=== PATIENT | female | born 1960 | race Caucasian/White ===

== ENCOUNTER 2022-06-14 17:26 | Inpatient (IN) | payer MEDICAID ==
[~2022-06-14] VITALS: Ht 162.6 cm; Wt 77.1 kg
[2022-06-14 17:43] VITALS: BP 143/80
[2022-06-14 18:15] LABS: BASOPHILS # (AUTO) 0.1 K/uL (0.00-0.22); BASOPHILS % (AUTO) 0.7 % (0.0-2.0); EOSINOPHILS # (AUTO) 0.1 K/uL (0-0.4); HEMATOCRIT 34.5 % (36-48); HEMOGLOBIN 11.7 g/dL (12.0-16.0); LYMPHOCYTES # (AUTO) 1.7 K/uL (2.5-16.5); LYMPHOCYTES % (AUTO) 20.2 % (20.5-51.1); MEAN CORPUSCULAR HEMOGLOBIN 29 pg (27-31); MEAN CORPUSCULAR HGB CONC 34 g/dL (33-37); MEAN CORPUSCULAR VOLUME 85.7 fL (80-94); MONOCYTES # (AUTO) 0.5 K/uL (0.8-1.0); MONOCYTES % (AUTO) 6.2 % (1.7-9.3); NEUTROPHILS # (AUTO) 6.2 K/uL (1.8-7.7); NEUTROPHILS % (AUTO) 71.9 % (42.2-75.2); PLATELET COUNT (AUTO) 296 K/uL (140-450); RED BLOOD CELL COUNT(AUTO) 4.03 MIL/uL (4.20-5.40); RED CELL DISTRIBUTION WIDTH 13.1 % (11.6-13.7); WHITE BLOOD COUNT (AUTO) 8.6 K/uL (4.8-10.8)
[2022-06-14 18:45] LABS: ANION GAP 16.2 (8-16); CARBON DIOXIDE 25.6 mmol/L (21-32); POTASSIUM 3.8 mmol/L (3.5-5.1)
--- NOTE | 2022-06-15 00:30 | NUR ---
PATIENT ATTEMPTED TO VOID WITH NO SUCCESS. PATIENT HAS A URINE CUP AND WILL NOTIFY NURSE WHEN URINE IS COLLECTED.
--- NOTE | 2022-06-15 01:41 | NUR ---
IV INITIATED 18G L AC.
--- NOTE | 2022-06-15 01:49 | NUR ---
PATIENT TAKEN TO CT VIA W/C
--- NOTE | 2022-06-15 02:18 | NUR ---
Will assume care of pt and she is placed in bed 12.
--- NOTE | 2022-06-15 02:20 | NUR ---
Pt returned from CT.
[2022-06-15 02:24] LABS: APPEARANCE,URINE CLEAR (CLEAR); BILIRUBIN,URINE NEGATIVE (NEGATIVE); BLOOD, URINE 1+ (NEGATIVE); COLOR,URINE YELLOW (YELLOW); LEUKOCYTE ESTERASE ,URINE TRACE (NEGATIVE); NITRITE, URINE NEGATIVE (NEGATIVE); PH,URINE 5.5 (5.0-9.0); UGLUCOSE 1+ (NEGATIVE)
--- NOTE | 2022-06-15 02:30 | NUR ---
Pt coming from home dropped off by family. Pt uses wheelchair. Has unsteady gait. Pt c/o abdominal pain in all quadrants that she states started many months ago. Rates pain 10/10 and is continuous. Abdomen non-tender. Denies n/v. No chest pain and no sob. A&Ox4. VSS. Skin intact. NKA. Has hx of HTN and DM. Bed in lowest position.
--- NOTE | 2022-06-15 02:36 | NUR ---
Placed pt on NC 3L with O2 improvement now she is at 97% instead of 93%.
--- NOTE | 2022-06-15 02:52 | NUR ---
Covid swab done and sent to lab.
[2022-06-15 03:00] LABS: RBC,URINE 0-5 /HPF (0-5)
[2022-06-15 04:37] LABS: ASPARTATE AMINOTRANSFERASE 19 U/L (15-37); TOTAL BILIRUBIN 0.3 mg/dL (0.0-1.0)
[2022-06-15 04:54] LABS: BILIRUBIN,DIRECT 0.1 mg/dL (0.0-0.3)
[2022-06-15] MEDS ORDERED: MORPHINE SULFATE 4 MG/ML SYR IVP ONE (05:40)
--- NOTE | 2022-06-15 06:04 | NUR ---
ekg completed and given to Dr. Rivera for review.
[2022-06-15] MEDS ORDERED: cefTRIAXone 1,000 MG VIAL ONE (06:15)
--- NOTE | 2022-06-15 06:16 | NUR ---
Blood cultures drawn and sent to lab.
[2022-06-15] MEDS ORDERED: HEPARIN PER PHARMACY MC PRN (07:25)
[2022-06-15 09:20] LABS: PROTHROMBIN TIME 10.6 secs (10.8-13.4)
[2022-06-15] MEDS ORDERED: POTASSIUM CHLORIDE 10 MEQ TABER PO PRN (10:40)
[2022-06-15] MEDS: NACL 0.9% 1,000 ML IV SCH (10:40)
[2022-06-15] MEDS ORDERED: MAG SULF 2000 MG/WATER PREMIX 50 ML IV PRN (10:40)
[2022-06-15] MEDS ORDERED: ACETAMINOPHEN 325 MG TAB PO PRN (10:40)
[2022-06-15] MEDS ORDERED: ONDANSETRON 4 MG/2 ML VIAL IVP PRN (10:40)
--- NOTE | 2022-06-15 11:00 | NUR ---
ADMITTED PATIENT FROM ED. A/OX4. NAD. ASSESSMENT DONE AND DOCUMENTED. V/S STABLE. PLAN OF CARE DISCUSSED. PATIENT VERBALIZED UNDERSTANDING.
[2022-06-15 11:01] LABS: BASOPHILS % (AUTO) 0.7 % (0.0-2.0); EOSINOPHILS # (AUTO) 0.1 K/uL (0-0.4); EOSINOPHILS % (AUTO) 1.2 % (0.0-4.0); HEMATOCRIT 32.9 % (36-48); HEMOGLOBIN 11.3 g/dL (12.0-16.0); LYMPHOCYTES # (AUTO) 1.3 K/uL (2.5-16.5); LYMPHOCYTES % (AUTO) 17.2 % (20.5-51.1); MEAN CORPUSCULAR HEMOGLOBIN 30 pg (27-31); MEAN CORPUSCULAR HGB CONC 34 g/dL (33-37); MEAN CORPUSCULAR VOLUME 85.8 fL (80-94); MONOCYTES # (AUTO) 0.5 K/uL (0.8-1.0); MONOCYTES % (AUTO) 7.2 % (1.7-9.3); NEUTROPHILS # (AUTO) 5.4 K/uL (1.8-7.7); NEUTROPHILS % (AUTO) 73.7 % (42.2-75.2); PLATELET COUNT (AUTO) 247 K/uL (140-450); RED BLOOD CELL COUNT(AUTO) 3.83 MIL/uL (4.20-5.40); WHITE BLOOD COUNT (AUTO) 7.4 K/uL (4.8-10.8)
--- NOTE | 2022-06-15 11:08 | NUR ---
Patient will be admitted to [facility]. Admitted to telemetry. Will go to room 104A. Belongings list completed. Report to Tamia GURROLA.
[2022-06-15 11:45] LABS: ANION GAP 12.2 (8-16); CARBON DIOXIDE 27.4 mmol/L (21-32); CREATININE 1.2 mg/dL (0.6-1.3); POTASSIUM 3.6 mmol/L (3.5-5.1)
[2022-06-15 13:17] LABS: CHOL/HDL RATIO 5.3 (1-4.5); FREE T4 (FREE THYROXINE) 1.14 ng/dL (0.76-1.46); MAGNESIUM 1.7 mg/dL (1.8-2.4); PHOSPHORUS 3.5 mg/dL (2.5-4.9); THYROID STIMULATING HORMONE 2.38 uIU/mL (0.34-3.74)
[2022-06-15] MEDS: hePARIN / DEXT 5% PREMIX 250 ML IV SCH ×2 (14:09→21:34)
[2022-06-15] MEDS: HYDROcodone/APAP 7.5/325 MG 1 TAB PO PRN (14:15)
[2022-06-15] MEDS ORDERED: GLIP10TE PO (15:12)
[2022-06-15] MEDS ORDERED: METF-346 PO (15:12)
[2022-06-15] MEDS ORDERED: LISI-487 PO (15:12)
[2022-06-15] MEDS ORDERED: HYDR-4004 PO (15:12)
[2022-06-15 16:00] VITALS: BP 120/63
[2022-06-15] MEDS ORDERED: DEXTROSE 50% 50 ML SYR IVP PRN (16:05)
[2022-06-15] MEDS: BLOOD GLUCOSE MONITORING 1 DEV DEV FS SCH ×2 (16:30→21:05)
[2022-06-15] MEDS: INSULIN LISPRO SLIDING SCALE 100 UNITS/ML VIAL SUBQ PRN (17:33)
--- NOTE | 2022-06-15 20:00 | NUR ---
ASSUMED CARE OF PT, DX UTI, R/O PE, MULTIPLE PULMONARY NODULES, ON HEPARIN DRIP AT 11CC/HR, PT IS COMORAN SPEAKER IS THIS RN, PT DENIES CP, SOB, PAIN OR DISCOMFORT, PT ASSESSED, PLS SEE SHIFT ASSESSMENT, INSTRUCTED TO CALL FOR ASSISTANCE, CALL LIGHT WITHIN REACH, BED LOCKED AT LOWEST POSITION, NO DISTRESS NOTED, WILL CONTINUE TO MONITOR.
[2022-06-15] MEDS ORDERED: LOVENOX 1MG/KG Q12H SUBQ SCH (21:00)
[2022-06-15] MEDS: DOCUSATE SODIUM 100 MG GELCAP PO SCH (21:05)
--- NOTE | 2022-06-15 21:30 | NUR ---
D- LAB REPORTED LATEST PTT 28.6 A- PER PROTOCOL HEPARIN DRIP RATE INCREASED TO 14CC/HR AND BOLUS HEPARIN 5000 UNITS IVP GIVEN. NO DISTRESS NOTED WILL CONTINUE TO MONITOR.
[2022-06-16 00:28] VITALS: BP 105/56
--- NOTE | 2022-06-16 03:00 | NUR ---
ASSISTED PT TO DRAFTER PATENT WITH SUPERVISED ASSIST ONLY, PT VOIDED WITHOUT INCIDENTS, NO DISTRESS NOTED, WILL CONTINUE TO MONITOR.
[2022-06-16 03:51] VITALS: BP 100/69
[2022-06-16 03:53] LABS: BASOPHILS % (AUTO) 0.8 % (0.0-2.0); EOSINOPHILS # (AUTO) 0.1 K/uL (0-0.4); EOSINOPHILS % (AUTO) 1.6 % (0.0-4.0); HEMATOCRIT 35.8 % (36-48); HEMOGLOBIN 12.1 g/dL (12.0-16.0); LYMPHOCYTES # (AUTO) 1.3 K/uL (2.5-16.5); LYMPHOCYTES % (AUTO) 21.3 % (20.5-51.1); MEAN CORPUSCULAR HEMOGLOBIN 29 pg (27-31); MEAN CORPUSCULAR HGB CONC 34 g/dL (33-37); MONOCYTES # (AUTO) 0.4 K/uL (0.8-1.0); MONOCYTES % (AUTO) 6.5 % (1.7-9.3); NEUTROPHILS # (AUTO) 4.4 K/uL (1.8-7.7); NEUTROPHILS % (AUTO) 69.8 % (42.2-75.2); PLATELET COUNT (AUTO) 279 K/uL (140-450); RED BLOOD CELL COUNT(AUTO) 4.21 MIL/uL (4.20-5.40); WHITE BLOOD COUNT (AUTO) 6.3 K/uL (4.8-10.8)
[2022-06-16 04:08] LABS: ANION GAP 12.8 (8-16); CARBON DIOXIDE 26.8 mmol/L (21-32); CREATININE 1.1 mg/dL (0.6-1.3); POTASSIUM 3.6 mmol/L (3.5-5.1)
[2022-06-16 04:11] LABS: MAGNESIUM 2.3 mg/dL (1.8-2.4)
[2022-06-16] MEDS: hePARIN / DEXT 5% PREMIX 250 ML IV SCH ×5 (05:59→23:03)
[2022-06-16] MEDS: NACL 0.9% 1,000 ML IV SCH (06:48)
--- NOTE | 2022-06-16 07:50 | NUR ---
CLOSING NO CHANGE ON STATUS, NO DISTRESS NOTED, REPORT GIVEN TO GALILEO CRISTOBAL PER SBAR AT BEDSIDE.
[2022-06-16 08:00] VITALS: BP 102/66
[2022-06-16] MEDS: BLOOD GLUCOSE MONITORING 1 DEV DEV FS SCH ×4 (08:18→21:27)
[2022-06-16] MEDS: INSULIN LISPRO SLIDING SCALE 100 UNITS/ML VIAL SUBQ PRN ×4 (08:34→21:30)
[2022-06-16] MEDS: DOCUSATE SODIUM 100 MG GELCAP PO SCH ×2 (08:39→21:22)
[2022-06-16] MEDS: PANTOPRAZOLE 40 MG INJ VIAL IVP SCH (08:40)
[2022-06-16 12:00] VITALS: BP 111/69
[2022-06-16] MEDS: NYSTATIN CRE 100 MU/GM 15 GM TUBE TP SCH ×2 (13:14→17:45)
--- NOTE | 2022-06-16 15:27 | NUR ---
PATIENT HAS BEEN SCREENED AND CATEGORIZED MODERATE NUTRITION RISK. PATIENT WILL BE SEEN WITHIN 3-5 DAYS OF ADMISSION. 06/18/[address]
[2022-06-16 16:00] VITALS: BP 123/77
--- NOTE | 2022-06-16 19:45 | NUR ---
RECEIVED REPORT FROM NURSE LEVAR. PATIENT AWAKE ALERT ORIENTED. NO S/S OF RESPIRATORY DISTRESS. ON ROOM AIR. BREATHING EVEN UNLABORED. NO COMPLAINTS OF PAIN AT THIS TIME. CALL LIGHT WITHIN REACH. ALL SAFETY PRECAUTIONS ARE IN PLACE. ON HEPARIN DRIP RUNNING AT 1800 UNITS/HR ON THE LAC.
[2022-06-16 20:00] VITALS: BP 112/77
--- NOTE | 2022-06-16 20:04 | NUR ---
ENDORSE PATIENT TO PM SHIFT NURSE WHILE PATIENT REST IN BED STABLE, PIV LAC INFUSING HEPARIN DRIP AT 18ML/HR. PTT DR SCHEDULE AT 1924.
--- NOTE | 2022-06-16 21:22 | NUR ---
ALL SCHEDULED MEDICATIONS ADMINISTERED.
[2022-06-17] VITALS: BP 110/70
[2022-06-17] MEDS: HYDROcodone/APAP 7.5/325 MG 1 TAB PO PRN (01:47)
[2022-06-17] MEDS: NACL 0.9% 1,000 ML IV SCH (02:40)
[2022-06-17 04:00] VITALS: BP 102/65
--- NOTE | 2022-06-17 06:34 | NUR ---
ROCEPHIN GIVEN ORDERED.
[2022-06-17] MEDS: BLOOD GLUCOSE MONITORING 1 DEV DEV FS SCH ×2 (06:35→12:07)
[2022-06-17] MEDS: INSULIN LISPRO SLIDING SCALE 100 UNITS/ML VIAL SUBQ PRN ×2 (06:36→12:08)
[2022-06-17 07:42] LABS: BASOPHILS % (AUTO) 0.5 % (0.0-2.0); EOSINOPHILS # (AUTO) 0.1 K/uL (0-0.4); EOSINOPHILS % (AUTO) 1.9 % (0.0-4.0); HEMATOCRIT 31.4 % (36-48); HEMOGLOBIN 10.8 g/dL (12.0-16.0); LYMPHOCYTES # (AUTO) 1.3 K/uL (2.5-16.5); LYMPHOCYTES % (AUTO) 20.7 % (20.5-51.1); MEAN CORPUSCULAR HEMOGLOBIN 30 pg (27-31); MEAN CORPUSCULAR HGB CONC 34 g/dL (33-37); MEAN CORPUSCULAR VOLUME 86.6 fL (80-94); MONOCYTES # (AUTO) 0.4 K/uL (0.8-1.0); MONOCYTES % (AUTO) 6.6 % (1.7-9.3); NEUTROPHILS # (AUTO) 4.5 K/uL (1.8-7.7); NEUTROPHILS % (AUTO) 70.3 % (42.2-75.2); PLATELET COUNT (AUTO) 249 K/uL (140-450); RED BLOOD CELL COUNT(AUTO) 3.62 MIL/uL (4.20-5.40); WHITE BLOOD COUNT (AUTO) 6.5 K/uL (4.8-10.8)
--- NOTE | 2022-06-17 07:42 | NUR ---
ENDORSED PATIENT TO DAY SHIFT NURSE FOR CONTINUITY OF CARE.
[2022-06-17 08:00] VITALS: BP 129/72
[2022-06-17 08:09] LABS: MAGNESIUM 1.8 mg/dL (1.8-2.4); PHOSPHORUS 3.3 mg/dL (2.5-4.9)
[2022-06-17 08:24] LABS: ANION GAP 15.3 (8-16); CARBON DIOXIDE 24.3 mmol/L (21-32); POTASSIUM 3.6 mmol/L (3.5-5.1)
--- NOTE | 2022-06-17 08:40 | NUR ---
DC PLANNING LATE ENTRY, PT SEEN 06/16 AT 1300 SW MET W/ PT AT BEDSIDE TO COMPLETE ASSESSMENT. PT PRIMARILY KYRGYZ SPEAKING THEREFORE, DECK WORKER SERVICE WAS UTILIZED; CARISSA [id number]. PT REPORTS RESIDING IN A SINGLE STORY HOME WITH HER RIGO AT THE ADDRESS LISTED ON FILE. PT IDENTIFIED RIGO HILLMAN, EMERGENCY CONTACT. PT DENIED HAVING AD IN PLACE AND DECLINED AD OFFERED BY SW. PT REPORTS LAST VISIT WITH PCP, MAY 27. PT REPORTS MEDICATION COMPLIANCE AND DENIES BARRIERS IN ACCESS TO NEEDED MEDICATIONS. PT REPORTS RECEIVING MEDICATIONS FROM [facility] IN [place], WHEN NEEDED. PT REPORTS BEING INDEPENDENT IN ALL ACTIVITIES AND DENIES USE OF DME. PT COMPLETES ALL ADL'S INDEPENDENTLY. PT DENIES MH/BRENNAN HX. PT REPORTS HX OF DIABETES THAT IS NOT WELL MANAGED SHE FINDS IT DIFFICULT TO BE NUTRITION COMPLIANT. PT REPORTS SHE IS AWARE SHE NEEDS TO MAKE HEALTHIER FOOD CHOICES TO AID IN MANAGING DIABETES. . PT DENIES HX OF HH, SNF PLACEMENT, DIALYSIS [place]. PT REPORTS DC PLAN IS TO RETURN HOME WITH SISTER PROVIDING TRANSPORTATION, WHEN MEDICALLY STABLE. SW INQUIRED ON RESOURCES NEEDED, PT DECLINED AT THIS TIME. Addendum: 06/17/22 at 0842 by Valerie WILSON Amended: Links added.
[2022-06-17] MEDS ORDERED: LACTULOSE 20 GM/30 ML UDC PO SCH (09:00)
[2022-06-17] MEDS: DOCUSATE SODIUM 100 MG GELCAP PO SCH (09:56)
[2022-06-17] MEDS: NYSTATIN CRE 100 MU/GM 15 GM TUBE TP SCH ×2 (09:56→12:11)
[2022-06-17] MEDS: PANTOPRAZOLE 40 MG INJ VIAL IVP SCH (09:56)
--- NOTE | 2022-06-17 10:02 | NUR ---
PTT 59.5 NO CHANGE WILL HANG NEW BAG
[2022-06-17] MEDS: hePARIN / DEXT 5% PREMIX 250 ML IV SCH (10:08)
[2022-06-17 12:00] VITALS: BP 140/90
[2022-06-17] MEDS ORDERED: GABA300C PO (13:38)
--- NOTE | 2022-06-17 16:00 | NUR ---
PT WITH DISCHARGE ORDERS VENOUS DOPPLER GERMAIN LOWER EXTREMETIES NEGATIVE MD JEAN AWARE AND PT WILL BE DISCHARGED ORDERED AT THIS TIME AWAITING RIDE
[2022-06-17 17:04] VITALS: BP 140/90
--- NOTE | 2022-06-17 17:16 | NUR ---
IV DISCONTINUED PT DRESSED AND AWAITING RIDE
--- NOTE | 2022-06-17 18:55 | NUR ---
DISCHARGE INSTRUCTIONS GIVEN TO PT VICE PRESIDENT OF SOFTWARE ENGINEERING HECTOR MUNOZ TRANSLATED PT AWARE WHERE TO LAMPS TESTER AND INSPECTOR RX AND ADVISED TO FOLLOW UP WITH PCP UNDERSTANDING VERBALIZED PT WISHES TO WAIT IN LOBBY FOR FAMILY PT ASSISTED TO LOBBY VIA WHEELCHAIR NO DISTRESS NOTED
[2022-06-17 20:34] LABS: BARBITURATE, URINE NEGATIVE ng/ml (NEG <=200); BENZODIAZEPINE, URINE NEGATIVE ng/mL (NEG <=200); CANNABINOID, URINE NEGATIVE ng/mL (NEG <=50); COCAINE, URINE NEGATIVE ng/mL (NEG <=300); OPIATE, URINE POSITIVE ng/mL (NEG <=2000); PHENCYCLIDINE SCREEN,URINE NEGATIVE ng/mL (NEG <=25)
== END 2022-06-17 18:59 | disposition home or self-care (01) | DRG 422 ==
LOC: MED 17:26 → MTU 06-15 07:15
DX: E86.0 Dehydration (principal); N17.0 Acute kidney failure with tubular necrosis; D64.9 Anemia, unspecified; E11.9 Type 2 diabetes mellitus without complications; E78.00 Pure hypercholesterolemia, unspecified; E78.5 Hyperlipidemia, unspecified; K40.90 Unilateral inguinal hernia, without obstruction or gangrene, not specified as recurrent; K76.0 Fatty (change of) liver, not elsewhere classified; N39.0 Urinary tract infection, site not specified; K57.90 Diverticulosis of intestine, part unspecified, without perforation or abscess without bleeding; E83.42 Hypomagnesemia; Z20.822 Contact with and (suspected) exposure to COVID-19; I10 Essential (primary) hypertension; L30.4 Erythema intertrigo; I70.0 Atherosclerosis of aorta; M41.9 Scoliosis, unspecified; Z79.4 Long term (current) use of insulin
CPT/HCPCS: 36415; 71045; 71275; 76881; 80048; 80076; 80305; 81001; 82140; 82150; 82948; 83036; 83605; 83690; 83735; 83880; 84100; 84439; 84443; 84484; 85025; 85379; 85610; 85730; 87040; 87081; 87086; 93970; 96374; 96375; 99285; C9113; J0696; J1644; J1815; J2270; J3475; J7060; Q0092; Q9967

== ENCOUNTER 2022-08-08 02:08 | Inpatient (IN) | payer MEDICAID ==
[~2022-08-08] VITALS: Ht 165.1 cm; Wt 86.2 kg
[~2022-08-08 02:08] MED LIST: GABA300C PO; GLIP10TE PO; HYDR-4004 PO; LISI-487 PO; METF-346 PO
[2022-08-08 02:15] VITALS: BP 123/90
--- NOTE | 2022-08-08 02:18 | NUR ---
TO LOBBY A/W BED AMBULATORY
--- NOTE | 2022-08-08 02:31 | NUR ---
Dr. Tracy examining patient.
--- NOTE | 2022-08-08 02:34 | NUR ---
PT TO 5
[2022-08-08] MEDS ORDERED: FLUCONAZOLE 100 MG/NS PREMIX 50 ML IV ONE (02:35)
[2022-08-08] MEDS ORDERED: NACL 0.9% 1,000 ML IV ONE ×2 (02:35→05:20)
[2022-08-08] MEDS ORDERED: KETOROLAC 30 MG/ML VIAL IVP ONE (02:35)
[2022-08-08] MEDS ORDERED: cefTRIAXone 1,000 MG VIAL ONE ×2 (03:06→20:35)
[2022-08-08 03:13] LABS: BASOPHILS # (AUTO) 0.1 K/uL (0.00-0.22); BASOPHILS % (AUTO) 1.3 % (0.0-2.0); EOSINOPHILS # (AUTO) 0.1 K/uL (0-0.4); EOSINOPHILS % (AUTO) 1.1 % (0.0-4.0); HEMATOCRIT 33.5 % (36-48); HEMOGLOBIN 11.7 g/dL (12.0-16.0); LYMPHOCYTES # (AUTO) 1.5 K/uL (2.5-16.5); LYMPHOCYTES % (AUTO) 20.1 % (20.5-51.1); MEAN CORPUSCULAR HEMOGLOBIN 29 pg (27-31); MEAN CORPUSCULAR HGB CONC 35 g/dL (33-37); MEAN CORPUSCULAR VOLUME 83.1 fL (80-94); MONOCYTES # (AUTO) 0.5 K/uL (0.8-1.0); MONOCYTES % (AUTO) 7.1 % (1.7-9.3); NEUTROPHILS # (AUTO) 5.2 K/uL (1.8-7.7); NEUTROPHILS % (AUTO) 70.4 % (42.2-75.2); PLATELET COUNT (AUTO) 265 K/uL (140-450); RED BLOOD CELL COUNT(AUTO) 4.03 MIL/uL (4.20-5.40); RED CELL DISTRIBUTION WIDTH 13.4 % (11.6-13.7); WHITE BLOOD COUNT (AUTO) 7.3 K/uL (4.8-10.8)
[2022-08-08 03:34] LABS: ALBUMIN 4.1 g/dL (3.4-5.0); ANION GAP 15.6 (8-16); CARBON DIOXIDE 24.8 mmol/L (21-32); CREATININE 1.1 mg/dL (0.6-1.3); POTASSIUM 3.4 mmol/L (3.5-5.1); TOTAL BILIRUBIN 0.8 mg/dL (0.0-1.0)
[2022-08-08 03:38] LABS: APPEARANCE,URINE CLEAR (CLEAR); BILIRUBIN,URINE NEGATIVE (NEGATIVE); BLOOD, URINE NEGATIVE (NEGATIVE); COLOR,URINE YELLOW (YELLOW); LEUKOCYTE ESTERASE ,URINE TRACE (NEGATIVE); NITRITE, URINE NEGATIVE (NEGATIVE); PH,URINE 5.5 (5.0-9.0); UGLUCOSE NEGATIVE (NEGATIVE)
--- NOTE | 2022-08-08 04:10 | NUR ---
Diflucan IV not available, ER Dr. Tracy aware.
[2022-08-08 04:14] LABS: RBC,URINE 0-5 /HPF (0-5)
--- NOTE | 2022-08-08 04:32 | NUR ---
Ambulated to restroom gait steady
--- NOTE | 2022-08-08 04:53 | NUR ---
Swabs collected sent to lab
[2022-08-08] MEDS ORDERED: [UNRECOGNIZED DRUG - CODE] PO (05:07)
[2022-08-08] MEDS ORDERED: VANCOMYCIN PER PHARMACY MC PRN (05:20)
--- NOTE | 2022-08-08 06:25 | NUR ---
Resting comfortably at this time. Denies any discomfort.
[2022-08-08] MEDS ORDERED: VANCOMYCIN 1GM/DEXT 5% PREMIX 200 ML IV SCH (06:30)
[2022-08-08] MEDS: PIPERACILLIN/TAZOBACTAM 3.375 GM in DEXTROSE 5% 50 ML IV SCH ×3 (06:45→18:46)
[2022-08-08] MEDS ORDERED: PIPERACILLIN/TAZOBACTAM 3.375 GM VIAL IV ONE ×3 (06:54→18:41)
[2022-08-08] MEDS ORDERED: PIPERACILLIN/TAZOBACTAM 3.375 GM in DEXTROSE 5% 50 ML IV SCH (07:00)
--- NOTE | 2022-08-08 07:21 | NUR ---
[facility]
--- NOTE | 2022-08-08 07:22 | NUR ---
Report recived from GALILEO Ortega for transfer of care.
--- NOTE | 2022-08-08 08:22 | NUR ---
Patient is resting on bed, respirations even and unlabored. All needs met by staff.
[2022-08-08] MEDS ORDERED: FENOFIBRATE 48 MG TAB PO SCH (09:00)
[2022-08-08] MEDS ORDERED: hydroCHLOROthiazide 25 MG TAB PO ONE (09:00)
--- NOTE | 2022-08-08 09:32 | NUR ---
PATIENT HAS BEEN SCREENED AND CATEGORIZED MODERATE NUTRITION RISK. PATIENT WILL BE SEEN WITHIN 3-5 DAYS OF ADMISSION. / REVIEWED BY ANDRIY SULLIVAN RD
[2022-08-08] MEDS: glipiZIDE ER 5 MG TABER PO SCH ×2 (10:26→20:49)
[2022-08-08] MEDS: metFORMIN 500 MG TAB PO SCH ×2 (10:27→20:49)
[2022-08-08] MEDS: lisinopriL 20 MG TAB PO SCH (10:30)
[2022-08-08] MEDS ORDERED: VANCOMYCIN 750 MG in DEXTROSE 5% 250 ML IV SCH ×3 (10:30→22:00)
[2022-08-08] MEDS ORDERED: VANCOMYCIN 1,000 MG VIAL PO SCH (10:45)
--- NOTE | 2022-08-08 10:51 | NUR ---
Dr. Watson, admitting doctor, evaluating patient at bedside.
[2022-08-08] MEDS ORDERED: hydroCHLOROthiazide 25 MG TAB PO SCH (12:00)
--- NOTE | 2022-08-08 12:06 | NUR ---
Patient was offered her lunch tray. Patient is sitting up eating.
--- NOTE | 2022-08-08 13:03 | NUR ---
Patient ambulated to restroom with steady gait.
--- NOTE | 2022-08-08 14:43 | NUR ---
Patient had one large loose bowel movement. Patient was assisted to the restroom and cleaned up. Patient applief fresh goen and brief.
[2022-08-08] MEDS: MORPHINE SULFATE 2 MG/ML SYR IVP PRN ×2 (15:17→22:15)
--- NOTE | 2022-08-08 16:34 | NUR ---
Patient is laying in bed, respirations even and unlabored. All needs met by staff.
--- NOTE | 2022-08-08 18:15 | NUR ---
Patient was offered dinner tray. Patient is sitting up eating dinner.
--- NOTE | 2022-08-08 19:16 | NUR ---
Report given to GALILEO Figueroa for transfer of care.
[2022-08-08] MEDS: NACL 0.9% 1,000 ML IV SCH (19:44)
[2022-08-08] MEDS: NYSTATIN CRE 100 MU/GM 15 GM TUBE TP SCH (20:49)
--- NOTE | 2022-08-08 21:00 | NUR ---
Patient will be admitted to care of Dr. Watson. Admited to MS floor. Will go to [id number]. Belongings list completed. Report to Shahla GURROLA.
[2022-08-08 21:10] VITALS: BP 115/74
--- NOTE | 2022-08-08 21:10 | NUR ---
PT TRANSPORTED FROM ER TO [facility] VIA GURNEY. RECEIVED REPORT FROM ER NURSE NIKOLE FOR CONTINUITY OF CARE. PT AWAKE. AMBULATORY. RESPIRATIONS EVEN AND UNLABORED ON RA. V/S AND MRSA NARES SWAB TAKEN. SKIN INTACT. NOTED REDNESS AND RASHES ON LOWER LEFT ABD. RESUMED IVF. PT ORIENTED TO ROOM, UNIT AND ROUTINE. CALL LIGHT WITHIN REACH. SAFETY PRECAUTIONS IN PLACE.
--- NOTE | 2022-08-08 21:30 | NUR ---
COMPLETED ADMISSION ASSESSMENT AND PROCESS USING EAR MACHINE OPERATOR #[id number]. RECEIVED ORDER FROM DR MAHONEY-FULL CODE.
[2022-08-08] MEDS ORDERED: VANCOMYCIN 500 MG VIAL ONE (21:59)
[2022-08-08] MEDS ORDERED: DEXTROSE 50% 50 ML SYR IVP PRN (22:35)
[2022-08-09] MEDS: NACL 0.9% 1,000 ML IV SCH ×2 (02:50→21:46)
[2022-08-09 04:00] VITALS: BP 122/85
[2022-08-09] MEDS ORDERED: ceFAZolin 1,000 MG VIAL ONE (04:43)
[2022-08-09] MEDS: BLOOD GLUCOSE MONITORING 1 DEV DEV FS SCH ×4 (06:32→20:18)
--- NOTE | 2022-08-09 06:32 | NUR ---
BLOOD SUGAR CHECK DONE. NO INSULIN COVERAGE NEEDED. PT BACK TO SLEEP. NO COMPLAINTS OF PAIN. NO DISTRESS NOTED. SAFETY PRECAUTIONS IN PLACE.
--- NOTE | 2022-08-09 07:17 | NUR ---
ENDORSED PT TO DAY SHIFT NURSE DAVID FOR CONTINUITY OF CARE. ALL NEEDS MET THROUGHOUT SHIFT. PT IS IN STABLE CONDITION.
--- NOTE | 2022-08-09 07:18 | NUR ---
RECEIVED PT FROM PATIENT CARE REPRESENTATIVE NURSE FOR CONTINUITY OF CARE. PT IN BED ASLEEP. VISIBLE CHEST RISE AND FALL. RESPIRATIONS EVEN AND UNLABORED. IV ON LAC. CALL LIGHT WITHIN REACH. ALL SAFETY MEASURES IN PLACE.
[2022-08-09 08:00] VITALS: BP 123/77
[2022-08-09] MEDS ORDERED: ACETAMINOPHEN 325 MG TAB PO PRN (08:20)
[2022-08-09] MEDS ORDERED: MORPHINE SULFATE 2 MG/ML SYR IVP PRN (08:20)
[2022-08-09] MEDS ORDERED: ZOLPIDEM 10 MG TAB PO PRN (08:20)
[2022-08-09] MEDS ORDERED: POTASSIUM CHLORIDE 10 MEQ TABER PO PRN (08:20)
[2022-08-09] MEDS ORDERED: LORazepam 2 MG/ML VIAL IVP PRN (08:20)
[2022-08-09] MEDS ORDERED: DOCUSATE SODIUM 100 MG GELCAP PO PRN (08:20)
[2022-08-09] MEDS ORDERED: ONDANSETRON 4 MG/2 ML VIAL IVP PRN (08:20)
[2022-08-09] MEDS: NYSTATIN CRE 100 MU/GM 15 GM TUBE TP SCH ×3 (09:00→20:24)
[2022-08-09] MEDS: glipiZIDE ER 5 MG TABER PO SCH (09:27)
[2022-08-09] MEDS: metFORMIN 500 MG TAB PO SCH ×2 (09:28→20:21)
[2022-08-09] MEDS: hydroCHLOROthiazide 25 MG TAB PO SCH (09:29)
[2022-08-09] MEDS: lisinopriL 20 MG TAB PO SCH (09:29)
[2022-08-09] MEDS: FENOFIBRATE 48 MG TAB PO SCH (09:29)
--- NOTE | 2022-08-09 09:30 | NUR ---
ALL SCHEDULED MEDS GIVEN. PT TOLERATING WELL.
[2022-08-09 10:06] LABS: CARBON DIOXIDE 24.9 mmol/L (21-32); POTASSIUM 3.9 mmol/L (3.5-5.1)
[2022-08-09] MEDS: INSULIN LISPRO SLIDING SCALE 100 UNITS/ML VIAL SUBQ PRN ×3 (12:07→20:19)
[2022-08-09 16:00] VITALS: BP 130/83
[2022-08-09] MEDS: glipiZIDE 10 MG TAB PO SCH (17:20)
--- NOTE | 2022-08-09 19:30 | NUR ---
ENDORSED PT TO SENIOR NET DEVELOPER ARCHITECT NURSE FOR CONTINUITY OF CARE. PT IN STABLE CONDITION.
--- NOTE | 2022-08-09 19:31 | NUR ---
RECEIVED REPORT FROM DAY SHIFT NURSE DAVID FOR CONTINUITY OF CARE. PT AWAKE, IN BED. AMBULATORY. INITIAL ASSESSMENT DONE. RESPIRATIONS EVEN AND UNLABORED ON RA. SKIN INTACT, WARM AND DRY TO TOUCH. NOTED, REDNESS AND RASHES ON LEFT LOWER ABD, UNDER SKIN FOLDS. CALL LIGHT WITHIN REACH. SAFETY PRECAUTIONS IN PLACE.
[2022-08-09 20:00] VITALS: BP 128/71
--- NOTE | 2022-08-09 20:21 | NUR ---
ADMINISTERED DUE MEDS. PT TOLERATED WELL.
--- NOTE | 2022-08-09 21:03 | NUR ---
PT COMPLAINING OF DIARRHEA. PER PT SHE HAD 10X DIARRHEA FOR TODAY. INFORMED MD. RECEIVED AND CARRIED OUT ORDERS.
--- NOTE | 2022-08-10 04:04 | NUR ---
DID ROUNDS. PT SLEEPING. BREATHING EVEN AND UNLABORED. NO DISTRESS NOTED. SAFETY PRECAUTIONS IN PLACE.
[2022-08-10] MEDS: BLOOD GLUCOSE MONITORING 1 DEV DEV FS SCH ×4 (06:32→21:00)
--- NOTE | 2022-08-10 06:32 | NUR ---
BLOOD SUGAR CHECK DONE. NO SLIDING SCALE INSULIN NEEDED. PT HAD 4 EPISODES OF LOOSE BM ALL THROUGHOUT THE SHIFT. PT RESTING IN BED WITH NO DISTRESS NOTED.
[2022-08-10] MEDS: NACL 0.9% 1,000 ML IV SCH ×2 (07:00→17:00)
--- NOTE | 2022-08-10 07:20 | NUR ---
RECEIVED REPORT FROM STAVE PLANER TENDER NURSE FOR CONTINUITY OF CARE. PT STABLE AT THIS TIME.
[2022-08-10 07:24] LABS: BASOPHILS % (AUTO) 0.5 % (0.0-2.0); EOSINOPHILS # (AUTO) 0.1 K/uL (0-0.4); EOSINOPHILS % (AUTO) 1.2 % (0.0-4.0); HEMATOCRIT 31.8 % (36-48); HEMOGLOBIN 10.8 g/dL (12.0-16.0); LYMPHOCYTES # (AUTO) 1.3 K/uL (2.5-16.5); LYMPHOCYTES % (AUTO) 19.7 % (20.5-51.1); MEAN CORPUSCULAR HEMOGLOBIN 29 pg (27-31); MEAN CORPUSCULAR HGB CONC 34 g/dL (33-37); MEAN CORPUSCULAR VOLUME 85.1 fL (80-94); MONOCYTES # (AUTO) 0.4 K/uL (0.8-1.0); MONOCYTES % (AUTO) 6.6 % (1.7-9.3); NEUTROPHILS # (AUTO) 4.8 K/uL (1.8-7.7); PLATELET COUNT (AUTO) 246 K/uL (140-450); RED BLOOD CELL COUNT(AUTO) 3.74 MIL/uL (4.20-5.40); RED CELL DISTRIBUTION WIDTH 13.1 % (11.6-13.7); WHITE BLOOD COUNT (AUTO) 6.6 K/uL (4.8-10.8)
--- NOTE | 2022-08-10 07:24 | NUR ---
ENDORSED PT TO DAY SHIFT NURSE ILYA FOR CONTINUITY OF CARE. PENDING STOOL SAMPLE FOR STOOL STUDIES. ALL NEEDS MET THROUGHOUT SHIFT. PT IS IN STABLE CONDITION.
[2022-08-10 07:30] LABS: ANION GAP 12.7 (8-16); CARBON DIOXIDE 25.3 mmol/L (21-32)
[2022-08-10 08:00] VITALS: BP 108/57
[2022-08-10] MEDS: glipiZIDE 10 MG TAB PO SCH ×2 (08:04→17:22)
[2022-08-10] MEDS: MORPHINE SULFATE 2 MG/ML SYR IVP PRN (08:05)
[2022-08-10] MEDS: hydroCHLOROthiazide 25 MG TAB PO SCH (09:00)
[2022-08-10] MEDS: NYSTATIN CRE 100 MU/GM 15 GM TUBE TP SCH ×2 (09:00→22:16)
[2022-08-10] MEDS: lisinopriL 20 MG TAB PO SCH (09:00)
[2022-08-10] MEDS: FENOFIBRATE 48 MG TAB PO SCH (09:56)
[2022-08-10] MEDS: metFORMIN 500 MG TAB PO SCH (09:57)
[2022-08-10] MEDS: MAG SULF 2000 MG/WATER PREMIX 50 ML IV PRN (09:58)
[2022-08-10] MEDS: INSULIN LISPRO SLIDING SCALE 100 UNITS/ML VIAL SUBQ PRN (12:05)
[2022-08-10] MEDS: PANTOPRAZOLE 40 MG INJ VIAL IVP SCH (12:05)
--- NOTE | 2022-08-10 13:00 | NUR ---
DISCHARGE PLANNING PATIENT IS A 62 YEAR OLD FEMALE ADMITTED TO [facility] ON 08/08/2022 DUE TO PAINFUL RASH IN THE LOWER ABDOMEN. SW MEET WITH PATIENT AT BEDSIDE TO DISCUSS AND GATHER PATIENT'S COLLATERAL INFORMATIONS. PATIENT WAS AWAKE AND ALERT ABLE TO PROVIDE HER OWN INFORMATION. (PATIENT IS KHMER SPEAKING) PER PATIENT SHE LIVES AT HOME WITH HER SISTER [place] SAVANA CARIAS. WHO ALSO CARES FOR HER MEDICAL NEEDS WHEN SHE ASK HER AND SHE ALSO PROVIDES HER WITH FAMILY SUPPORT. PER PATIENT SHE DO NOT HAVE ADVANCE DIRECTIVES AND DECLINED ALL FORMS PROVIDED BY SW. PATIENT STATED THAT HER SISTER IN [place] SAVANA CARIAS IS HER EMERGENCY CONTACT AND HER MEDICAL DECISION MAKER. PATIENT STATED LIVING AT HOME WITH HER SISTER [place] IN THEIR HOME IN [facility]. PER PATIENT SHE IS INDEPENDENT AND DO NOT HAVE DME. PATIENT REPORTED HAVING A PCP DR. GUALLPA IN [facility] AND REMEMBER THAT HER LAST VISIT WAS ABOUT A MONTH AGO ON 07/09. SW DISCUSSED WITH PATIENT ABOUT THE IMPORTANCE OF HAVING A FOLLOW UP APPOINTMENT WITHIN 5-7 DAYS AFTER HER DISCHARGE HOWEVER; PATIENT DECLINED THE APPOINTMENT AND STATED THAT HER SISTER [place] WILL MAKE HER APPOINTMENT AFTER PATIENT DISCHARGES. PER PATIENT SHE HAS NO ISSUES GETTING OR TAKING HER MEDICATIONS THAT SHE IS GETTING FROM THE [facility] IN [facility]. IN [place]. PER PATIENT SHE WILL BE GOING BACK HOME WITH HER SISTER [place] WHEN SHE IS DISCHARGED AND SHE WILL BE DIE TRIMMER AND ASSISTED WITH TRANSPORTATION BY HER SISTER [place] S[place]NA. SW THANKED PATIENT'S FOR THE INFORMATION AND ENDED THE MEETING. BRITTNEY/CM WILL FOLLOW UP NEED IT.
[2022-08-10 16:00] VITALS: BP 118/71
--- NOTE | 2022-08-10 19:10 | NUR ---
ENDORSED PT TO INTEGRATION MANAGER NURSE FOR CONTINUITY OF CARE. PT IS STABLE.
--- NOTE | 2022-08-10 19:25 | NUR ---
RECEIVED PT FROM AM NURSE FOR CONTINUITY OF CARE. PT IS STABLE
[2022-08-10 20:00] VITALS: BP 124/72
--- NOTE | 2022-08-10 22:30 | NUR ---
CT OF ABDOMEN DONE AND RESULTED
[2022-08-11] MEDS: NACL 0.9% 1,000 ML IV SCH ×3 (00:50→13:00)
--- NOTE | 2022-08-11 01:00 | NUR ---
PATIENT ASLEEP, NO DISTRESS NOTED
[2022-08-11] MEDS: BLOOD GLUCOSE MONITORING 1 DEV DEV FS SCH ×4 (06:42→20:22)
[2022-08-11] MEDS: glipiZIDE 10 MG TAB PO SCH ×2 (06:43→16:07)
--- NOTE | 2022-08-11 07:18 | NUR ---
ASSUMED CONTINUITY OF CARE. INITIAL ASSESSMENT DONE. KEEP COMFORTABLE ON BED. CALL LIGHT WITHIN REACH.
[2022-08-11 07:19] LABS: ANION GAP 13.1 (8-16); CARBON DIOXIDE 25.1 mmol/L (21-32); CREATININE 0.9 mg/dL (0.6-1.3); POTASSIUM 4.2 mmol/L (3.5-5.1)
[2022-08-11 07:30] LABS: BASOPHILS % (AUTO) 0.6 % (0.0-2.0); EOSINOPHILS # (AUTO) 0.1 K/uL (0-0.4); EOSINOPHILS % (AUTO) 1.5 % (0.0-4.0); HEMATOCRIT 30.5 % (36-48); HEMOGLOBIN 10.4 g/dL (12.0-16.0); LYMPHOCYTES # (AUTO) 1.3 K/uL (2.5-16.5); LYMPHOCYTES % (AUTO) 20.4 % (20.5-51.1); MEAN CORPUSCULAR HEMOGLOBIN 29 pg (27-31); MEAN CORPUSCULAR HGB CONC 34 g/dL (33-37); MEAN CORPUSCULAR VOLUME 85.1 fL (80-94); MONOCYTES # (AUTO) 0.5 K/uL (0.8-1.0); MONOCYTES % (AUTO) 7.1 % (1.7-9.3); NEUTROPHILS # (AUTO) 4.6 K/uL (1.8-7.7); NEUTROPHILS % (AUTO) 70.4 % (42.2-75.2); PLATELET COUNT (AUTO) 239 K/uL (140-450); RED BLOOD CELL COUNT(AUTO) 3.58 MIL/uL (4.20-5.40); RED CELL DISTRIBUTION WIDTH 13.3 % (11.6-13.7); WHITE BLOOD COUNT (AUTO) 6.5 K/uL (4.8-10.8)
--- NOTE | 2022-08-11 07:38 | NUR ---
HAD BM WITH MODERATE AMOUNT OF SOFT FORMED STOOL. USED BEDSIDE COMMODE. NO C/O PAIN. COLLECTED STOOL SPECIMEN FOR WBC STOOL AND STOOL CULTURE AND SEND TO LAB.
[2022-08-11 08:00] VITALS: BP 128/65
[2022-08-11] MEDS: PANTOPRAZOLE 40 MG INJ VIAL IVP SCH (08:46)
--- NOTE | 2022-08-11 08:49 | NUR ---
SCHEDULED IV MEDICATION DUE GIVEN. WILL CONTINUE TO MONITOR.
[2022-08-11] MEDS: FENOFIBRATE 48 MG TAB PO SCH (09:37)
[2022-08-11] MEDS: NYSTATIN CRE 100 MU/GM 15 GM TUBE TP SCH ×2 (09:38→20:23)
[2022-08-11] MEDS: hydroCHLOROthiazide 25 MG TAB PO SCH (09:38)
[2022-08-11] MEDS: lisinopriL 20 MG TAB PO SCH (09:38)
--- NOTE | 2022-08-11 10:14 | NUR ---
DR. NAVAS CALLED AND ASKED FOR PT. H & P, AND LATEST CBC RESULTS.
--- NOTE | 2022-08-11 11:20 | NUR ---
DR. MAHONEY CAME AT NURSE STATION, INFORMED THAT DR. NAVAS CALL ED AND ASKED FOR PT. H & P, CBC RESULTS. ALSO INFORMED DR. MAHONEY THAT ACCORDING TO DR. NAVAS PT. CAN BE TREAT OUTPATIENT.
[2022-08-11] MEDS ORDERED: VANCOMYCIN 500 MG VIAL PO SCH (12:00)
[2022-08-11] MEDS: VANCOMYCIN HCL 25 MG/ML SOLN PO SCH ×2 (12:14→17:08)
[2022-08-11] MEDS: MAG SULF 2000 MG/WATER PREMIX 50 ML IV PRN (12:17)
--- NOTE | 2022-08-11 12:24 | NUR ---
MG 1.6, IV MAG RIDER GIVEN PER PRN ORDERS. WILL CONTINUE TO MONITOR.
[2022-08-11 16:00] VITALS: BP 121/79
--- NOTE | 2022-08-11 16:54 | NUR ---
08/11/22 RD INITIAL ASSESSMENT COMPLETED PLEASE REFER TO NUTRITION ASSESSMENT UNDER CARE ACTIVITY FOR ESTIMATED NUTRITIONAL NEEDS. 1. CONTINUE CCCHO 60 GRAM DIET 2. DYNAMITE SHOOTER EDUCATED PT ON DIABETES NUTRITION THERAPY, AND PROVIDED HANDOUTS. 3. MONITOR PO INTAKE, GI, AND LAB VALUES. 4. RD TO FOLLOW-UP 7 DAYS, LOW RISK REVIEWED BY ANDRIY SULLIVAN RD
--- NOTE | 2022-08-11 19:20 | NUR ---
REPORT GIVEN TO SANJIV MONREAL. IVF INFUSING WELL. IN STABLE CONDITION.
--- NOTE | 2022-08-11 19:30 | NUR ---
RECEIVED REPORT FROM DAY SHIFT NURSE AYSHA FOR CONTINUITY OF CARE. PATIENT IS A&O X4, SURINAMESE SPEAKING. PATIENT IS ON ROOM AIR, BREATHING IS NORMAL WITH SYMMETRICAL RISE AND FALL OF CHEST. IV IS A LAC 20G; RUNNING NS 100. PATIENT IS AWAKE IN BED, LYING SEMI-FOWLERS POSITION. WILL CONTINUE TO OBSERVE PATIENT.
[2022-08-11 20:00] VITALS: BP 128/68
[2022-08-12] MEDS: VANCOMYCIN HCL 25 MG/ML SOLN PO SCH ×3 (00:55→12:36)
[2022-08-12 04:00] VITALS: BP 126/71
--- NOTE | 2022-08-12 04:30 | NUR ---
PATIENT'S IV CAME OUT. NEW IV WAS INSERTED. NEW IV IS A 22G R HAND. PATIENT IS SLEEPING. WILL CONTINUE TO OBSERVE PATIENT.
[2022-08-12] MEDS: glipiZIDE 10 MG TAB PO SCH ×2 (06:34→16:42)
[2022-08-12] MEDS: BLOOD GLUCOSE MONITORING 1 DEV DEV FS SCH ×2 (06:43→11:59)
[2022-08-12 06:47] LABS: ANION GAP 13.7 (8-16); CARBON DIOXIDE 25.4 mmol/L (21-32); POTASSIUM 4.1 mmol/L (3.5-5.1)
[2022-08-12 07:21] LABS: BASOPHILS % (AUTO) 0.6 % (0.0-2.0); EOSINOPHILS # (AUTO) 0.1 K/uL (0-0.4); EOSINOPHILS % (AUTO) 1.9 % (0.0-4.0); HEMATOCRIT 31.1 % (36-48); HEMOGLOBIN 10.5 g/dL (12.0-16.0); LYMPHOCYTES # (AUTO) 1.2 K/uL (2.5-16.5); LYMPHOCYTES % (AUTO) 18.3 % (20.5-51.1); MEAN CORPUSCULAR HEMOGLOBIN 29 pg (27-31); MEAN CORPUSCULAR HGB CONC 34 g/dL (33-37); MONOCYTES # (AUTO) 0.4 K/uL (0.8-1.0); MONOCYTES % (AUTO) 6.9 % (1.7-9.3); NEUTROPHILS # (AUTO) 4.6 K/uL (1.8-7.7); NEUTROPHILS % (AUTO) 72.3 % (42.2-75.2); PLATELET COUNT (AUTO) 233 K/uL (140-450); RED BLOOD CELL COUNT(AUTO) 3.62 MIL/uL (4.20-5.40); RED CELL DISTRIBUTION WIDTH 13.1 % (11.6-13.7); WHITE BLOOD COUNT (AUTO) 6.3 K/uL (4.8-10.8)
--- NOTE | 2022-08-12 07:25 | NUR ---
RECEIVED PT FROM HOUSE MOVING SUPERVISOR FOR CONTINUITY OF CARE.
--- NOTE | 2022-08-12 07:39 | NUR ---
ENDORSED TO DAY SHIFT NURSE FIONA FOR CONTINUITY OF CARE. PATIENT IS STABLE.
--- NOTE | 2022-08-12 08:25 | NUR ---
Patient's Plan of Care was discussed and reviewed with CARPENTER REFRIGERATOR:
[2022-08-12] MEDS ORDERED: VANC125C10 PO (09:07)
[2022-08-12] MEDS ORDERED: NYST15CR10 TP (09:08)
[2022-08-12] MEDS: FENOFIBRATE 48 MG TAB PO SCH (09:26)
[2022-08-12] MEDS: lisinopriL 20 MG TAB PO SCH (09:27)
[2022-08-12] MEDS: hydroCHLOROthiazide 25 MG TAB PO SCH (09:27)
[2022-08-12] MEDS: NYSTATIN CRE 100 MU/GM 15 GM TUBE TP SCH (09:30)
[2022-08-12] MEDS: NACL 0.9% 1,000 ML IV SCH (09:39)
[2022-08-12] MEDS: MORPHINE SULFATE 2 MG/ML SYR IVP PRN ×2 (09:57→10:01)
[2022-08-12] MEDS: PANTOPRAZOLE 40 MG INJ VIAL IVP SCH (09:57)
[2022-08-12] MEDS: MAG SULF 2000 MG/WATER PREMIX 50 ML IV PRN (09:58)
[2022-08-12] MEDS: INSULIN LISPRO SLIDING SCALE 100 UNITS/ML VIAL SUBQ PRN (12:01)
[2022-08-12 14:06] VITALS: BP 136/89
--- NOTE | 2022-08-12 15:06 | NUR ---
MAKING ROUNDS. PT IN BED SAYING SHE SPOKE TO HER SISTER AND IS AWARE SHE WILL BE PICKING HER UP AT 4PM.
--- NOTE | 2022-08-12 17:00 | NUR ---
SPOKE TO SISTER SAVANA. WHO SAYS SHE WILL BE HERE SOON TO GARBAGE COLLECTOR SUPERVISOR PT FOR DISCHARGE.
--- NOTE | 2022-08-12 17:25 | NUR ---
DISCUSSED DC PACKET WITH PT. PT SISTER SAVANA GATHERED ALL PT BELONGINGS. REMOVED PT IV AND NAME BAND. PT AMBULATED TO FRONT LOBBY. PT IN STABLE CONDITION. DC TO HOME.
== END 2022-08-12 17:25 | disposition home or self-care (01) | DRG 720 ==
LOC: MED 02:08 → MMU 05:24 → MTU 20:40
PROVIDERS: ADMIT Family Medicine; ATTEND Family Medicine
DX: A41.9 Sepsis, unspecified organism (principal); A04.72 Enterocolitis due to Clostridium difficile, not specified as recurrent; L03.314 Cellulitis of groin; B37.2 Candidiasis of skin and nail; E78.5 Hyperlipidemia, unspecified; E11.9 Type 2 diabetes mellitus without complications; I10 Essential (primary) hypertension; N39.0 Urinary tract infection, site not specified; Z20.822 Contact with and (suspected) exposure to COVID-19
CPT/HCPCS: 36415; 76700; 80048; 80053; 80202; 81001; 82948; 83605; 83735; 85025; 87040; 87045; 87070; 87081; 87086; 89055; 96365; 96375; 99285; C9113; J0690; J0696; J1450; J1885; J2270; J2543; J3370; J3475; J7060; Q0092

== ENCOUNTER 2023-03-22 23:55 | Observation (INO) | payer MEDICAID ==
[~2023-03-22] VITALS: Ht 156.2 cm; Wt 84.8 kg
[~2023-03-22 23:55] MED LIST changes: -GABA300C PO; +NYST15CR10 TP; +VANC125C10 PO; +[UNRECOGNIZED DRUG - CODE] PO
[2023-03-23] VITALS (7 sets, daily range): BP systolic 129–136; BP diastolic 74–82; PULSE 72–87; RESP 12–19; TEMP 97.1–97.8; O2SAT 98–99
[2023-03-23 01:02] LABS: BASOPHILS # (AUTO) 0.1 K/uL (0.00-0.22); BASOPHILS % (AUTO) 0.9 % (0.0-2.0); EOSINOPHILS # (AUTO) 0.1 K/uL (0-0.4); EOSINOPHILS % (AUTO) 0.9 % (0.0-4.0); HEMATOCRIT 33.9 % (36-48); HEMOGLOBIN 11.7 g/dL (12.0-16.0); LYMPHOCYTES # (AUTO) 1.8 K/uL (2.5-16.5); LYMPHOCYTES % (AUTO) 20.5 % (20.5-51.1); MEAN CORPUSCULAR HEMOGLOBIN 30 pg (27-31); MEAN CORPUSCULAR HGB CONC 35 g/dL (33-37); MONOCYTES # (AUTO) 0.5 K/uL (0.8-1.0); MONOCYTES % (AUTO) 6.2 % (1.7-9.3); NEUTROPHILS # (AUTO) 6.3 K/uL (1.8-7.7); NEUTROPHILS % (AUTO) 71.5 % (42.2-75.2); PLATELET COUNT (AUTO) 216 K/uL (140-450); RED BLOOD CELL COUNT(AUTO) 3.94 MIL/uL (4.20-5.40); RED CELL DISTRIBUTION WIDTH 13.5 % (11.6-13.7); WHITE BLOOD COUNT (AUTO) 8.8 K/uL (4.8-10.8)
[2023-03-23] MEDS ORDERED: MORPHINE SULFATE 4 MG/ML SYR IVP ONE (01:15)
[2023-03-23] MEDS ORDERED: ONDANSETRON 4 MG/2 ML VIAL IVP ONE (01:15)
[2023-03-23 01:17] LABS: ALBUMIN 3.4 g/dL (3.4-5.0); ANION GAP 13.5 (8-16); CALCIUM 8.4 mg/dL (8.5-10.1); CARBON DIOXIDE 25.1 mmol/L (21-32); CREATININE 0.9 mg/dL (0.6-1.3); POTASSIUM 3.6 mmol/L (3.5-5.1); TOTAL BILIRUBIN 0.5 mg/dL (0.0-1.0); TOTAL PROTEIN, SERUM 7.3 g/dL (6.4-8.2)
[2023-03-23 01:31] LABS: APPEARANCE,URINE CLEAR (CLEAR); BILIRUBIN,URINE NEGATIVE (NEGATIVE); BLOOD, URINE NEGATIVE (NEGATIVE); COLOR,URINE YELLOW (YELLOW); LEUKOCYTE ESTERASE ,URINE NEGATIVE (NEGATIVE); NITRITE, URINE NEGATIVE (NEGATIVE); PROTEIN,URINE NEGATIVE (NEGATIVE); UGLUCOSE 2+ (NEGATIVE); UROBILINOGEN,URINE 0.2 EU/dL (0.2 - 1)
[2023-03-23] MEDS ORDERED: ALUMINUM HYD/MAG/SIMETHICONE 30 ML UDC PO ONE (02:35)
[2023-03-23] MEDS ORDERED: LORazepam 1 MG TAB PO ONE (02:35)
[2023-03-23] MEDS ORDERED: LORazepam 1 MG TAB ONE (03:55)
[2023-03-23] MEDS ORDERED: ALUMINUM HYD/MAG/SIMETHICONE 30 ML UDC ONE (03:56)
[2023-03-23] MEDS ORDERED: KETOROLAC 30 MG/ML VIAL IVP ONE (04:35)
[2023-03-23] MEDS ORDERED: metroNIDAZOLE 500 MG/NS PREMIX 100 ML IV ONE (06:05)
[2023-03-23] MEDS ORDERED: LEVOFLOXACIN 750 MG/D5W PREMIX 150 ML IV ONE (06:05)
[2023-03-23] MEDS ORDERED: NACL 0.9% 1,000 ML IV ONE (06:05)
[2023-03-23 07:40] LABS: LACTIC ACID 2.2 mmol/L (0.4-2.0)
[2023-03-23] MEDS ORDERED: HYDROcodone/APAP 5/325 MG 1 TAB TAB PO PRN ×2 (12:20)
[2023-03-23] MEDS ORDERED: ACETAMINOPHEN 325 MG TAB PO PRN (12:20)
[2023-03-23] MEDS: PIPERACILLIN/TAZOBACTAM 2.25 GM in DEXTROSE 5% 50 ML IV SCH ×2 (13:26→20:07)
[2023-03-23] MEDS ORDERED: DEXTROSE 50% 50 ML SYR IVP PRN (20:05)
[2023-03-23] MEDS ORDERED: HYDROcodone/APAP 7.5/325 MG 1 TAB PO PRN (20:20)
[2023-03-23] MEDS: BLOOD GLUCOSE MONITORING 1 DEV DEV FS SCH (21:26)
[2023-03-23] MEDS: INSULIN LISPRO SLIDING SCALE 100 UNITS/ML VIAL SUBQ PRN (21:38)
[2023-03-24] MEDS: PIPERACILLIN/TAZOBACTAM 2.25 GM in DEXTROSE 5% 50 ML IV SCH ×2 (04:37→12:14)
[2023-03-24 05:18] LABS: BASOPHILS % (AUTO) 0.4 % (0.0-2.0); EOSINOPHILS # (AUTO) 0.1 K/uL (0-0.4); EOSINOPHILS % (AUTO) 1.4 % (0.0-4.0); LYMPHOCYTES # (AUTO) 1.4 K/uL (2.5-16.5); LYMPHOCYTES % (AUTO) 22.9 % (20.5-51.1); MEAN CORPUSCULAR HEMOGLOBIN 29 pg (27-31); MEAN CORPUSCULAR HGB CONC 34 g/dL (33-37); MEAN CORPUSCULAR VOLUME 84.7 fL (80-94); MONOCYTES # (AUTO) 0.4 K/uL (0.8-1.0); MONOCYTES % (AUTO) 7.5 % (1.7-9.3); NEUTROPHILS % (AUTO) 67.8 % (42.2-75.2); PLATELET COUNT (AUTO) 210 K/uL (140-450); RED BLOOD CELL COUNT(AUTO) 3.78 MIL/uL (4.20-5.40); RED CELL DISTRIBUTION WIDTH 13.6 % (11.6-13.7)
[2023-03-24 05:36] LABS: ALBUMIN 2.9 g/dL (3.4-5.0); ANION GAP 11.9 (8-16); CALCIUM 8.3 mg/dL (8.5-10.1); CARBON DIOXIDE 25.1 mmol/L (21-32); TOTAL BILIRUBIN 0.7 mg/dL (0.0-1.0); TOTAL PROTEIN, SERUM 6.6 g/dL (6.4-8.2)
[2023-03-24] MEDS: BLOOD GLUCOSE MONITORING 1 DEV DEV FS SCH ×2 (06:40→12:26)
[2023-03-24] MEDS: INSULIN LISPRO SLIDING SCALE 100 UNITS/ML VIAL SUBQ PRN ×2 (06:40→12:25)
[2023-03-24 08:00] VITALS: BP 126/80; PULSE 73; RESP 18; TEMP 96.7; O2SAT 96; O2SAT 99
[2023-03-24] MEDS ORDERED: PANT40EC PO (11:16)
[2023-03-24] MEDS ORDERED: CYCL-711 PO (11:16)
[2023-03-24] MEDS ORDERED: METR-520 PO (11:16)
[2023-03-24] MEDS ORDERED: IBUP-2213 PO (11:16)
[2023-03-24] MEDS ORDERED: LID5T TP (11:16)
[2023-03-24] MEDS ORDERED: PROC-87 PO (11:19)
[2023-03-24] MEDS ORDERED: LEVO750T75 PO (11:19)
[2023-03-24 12:50] VITALS: BP 126/80; PULSE 73; RESP 18; TEMP 96.7
== END 2023-03-24 14:05 | disposition home or self-care (01) ==
LOC: MED 23:55 → MMU 03-23 09:34 → MTU 03-23 09:59
PROVIDERS: ADMIT Student in an Organized Health Care Education/Training Program; ATTEND Student in an Organized Health Care Education/Training Program
DX: K57.32 Diverticulitis of large intestine without perforation or abscess without bleeding (principal); J45.909 Unspecified asthma, uncomplicated; E11.9 Type 2 diabetes mellitus without complications; Z79.899 Other long term (current) drug therapy
CPT/HCPCS: 36415; 74176; 80053; 81003; 82948; 83605; 83690; 85025; 87040; 93005; 96365; 96366; 96367; 96372; 96375; 99285; G0378; J1815; J1885; J1956; J2270; J2405; J2543; J3490; J7060

== ENCOUNTER 2023-04-17 17:13 | Emergency (ER) | payer MEDICAID ==
[~2023-04-17] VITALS: Ht 167.6 cm; Wt 81.6 kg
[~2023-04-17 17:13] MED LIST changes: +CYCL-711 PO; +IBUP-2213 PO; +LEVO750T75 PO; +LID5T TP; +METR-520 PO; +PANT40EC PO; +PROC-87 PO; -VANC125C10 PO
[2023-04-17 17:16] VITALS: BP 122/74; PULSE 123; RESP 15; TEMP 97.3; O2SAT 95
[2023-04-17] MEDS ORDERED: NACL 0.9% 2,000 ML IV SCH (17:50)
[2023-04-17] MEDS ORDERED: ONDANSETRON 4 MG/2 ML VIAL IVP ONE (17:50)
[2023-04-17] MEDS ORDERED: MORPHINE SULFATE 4 MG/ML SYR IVP ONE (17:50)
[2023-04-17 18:50] LABS: BASOPHILS % (AUTO) 0.3 % (0.0-2.0); EOSINOPHILS % (AUTO) 0.6 % (0.0-4.0); HEMATOCRIT 38.9 % (36-48); HEMOGLOBIN 13.3 g/dL (12.0-16.0); LYMPHOCYTES % (AUTO) 14.9 % (20.5-51.1); MEAN CORPUSCULAR HEMOGLOBIN 29 pg (27-31); MEAN CORPUSCULAR HGB CONC 34 g/dL (33-37); MEAN CORPUSCULAR VOLUME 85.3 fL (80-94); MONOCYTES # (AUTO) 1.1 K/uL (0.8-1.0); MONOCYTES % (AUTO) 15.6 % (1.7-9.3); NEUTROPHILS # (AUTO) 4.6 K/uL (1.8-7.7); NEUTROPHILS % (AUTO) 68.6 % (42.2-75.2); PLATELET COUNT (AUTO) 289 K/uL (140-450); RED BLOOD CELL COUNT(AUTO) 4.56 MIL/uL (4.20-5.40); RED CELL DISTRIBUTION WIDTH 13.5 % (11.6-13.7); WHITE BLOOD COUNT (AUTO) 6.7 K/uL (4.8-10.8)
[2023-04-17 19:07] LABS: INR 1.16 (0.8-1.2); PARTIAL THROMBOPLASTIN TIME 21.4 secs (22-35.6); PROTHROMBIN TIME 12.1 secs (10.8-13.4)
[2023-04-17 19:08] LABS: ALBUMIN 3.9 g/dL (3.4-5.0); ANION GAP 14.2 (8-16); CALCIUM 9.8 mg/dL (8.5-10.1); CARBON DIOXIDE 26.3 mmol/L (21-32); CREATININE 1.5 mg/dL (0.6-1.3); POTASSIUM 3.5 mmol/L (3.5-5.1); TOTAL BILIRUBIN 1.7 mg/dL (0.0-1.0); TOTAL PROTEIN, SERUM 8.1 g/dL (6.4-8.2)
[2023-04-17 19:12] LABS: CREATINE KINASE, TOTAL 46 U/L (26-192); LIPASE 42 U/L (73-393)
[2023-04-17] MEDS ORDERED: ONDANSETRON 4 MG/2 ML VIAL ONE (19:28)
[2023-04-17] MEDS ORDERED: NACL 0.9% 1,000 ML IV ONE (19:40)
[2023-04-17] MEDS ORDERED: PIPERACILLIN/TAZOBACTAM 3.375 GM in DEXTROSE 5% 50 ML IV ONE (19:40)
[2023-04-17] MEDS ORDERED: fentaNYL citrate 0.05 MG/ML VIAL IVP ONE (19:45)
[2023-04-17] MEDS ORDERED: PIPERACILLIN/TAZOBACTAM 3.375 GM VIAL IV ONE (19:46)
[2023-04-17 19:53] LABS: APPEARANCE,URINE CLOUDY (CLEAR); BILIRUBIN,URINE 1+ (NEGATIVE); BLOOD, URINE 2+ (NEGATIVE); COLOR,URINE BROWN (YELLOW); LEUKOCYTE ESTERASE ,URINE 2+ (NEGATIVE); NITRITE, URINE POSITIVE (NEGATIVE); PH,URINE 5.5 (5.0-9.0); PROTEIN,URINE 1+ (NEGATIVE); UGLUCOSE 2+ (NEGATIVE)
[2023-04-17 20:33] LABS: BACTERIA,URINE 4+ /HPF (None Seen); RBC,URINE >100 /HPF (0-5); WBC,URINE 0-5 /HPF (0-5)
[2023-04-18 00:25] VITALS: BP 122/78; PULSE 99; RESP 16; TEMP 97; O2SAT 95
== END 2023-04-18 00:25 | disposition short-term general hospital (02) ==
LOC: MED 17:13
DX: N12 Tubulo-interstitial nephritis, not specified as acute or chronic (principal); R65.20 Severe sepsis without septic shock; K56.609 Unspecified intestinal obstruction, unspecified as to partial versus complete obstruction; R00.0 Tachycardia, unspecified; J45.909 Unspecified asthma, uncomplicated; E11.9 Type 2 diabetes mellitus without complications; I10 Essential (primary) hypertension; E78.00 Pure hypercholesterolemia, unspecified; Z98.890 Other specified postprocedural states; Z79.899 Other long term (current) drug therapy; Z79.2 Long term (current) use of antibiotics; Z79.1 Long term (current) use of non-steroidal anti-inflammatories (NSAID)
CPT/HCPCS: 36415; 71045; 74018; 74177; 80053; 81001; 82550; 83605; 83690; 83880; 84484; 85025; 85610; 85730; 86886; 86900; 86901; 87040; 87086; 93005; 96365; 96375; 99291; J2405; J2543; J3010; J7030; Q0092; Q9967

== ENCOUNTER 2023-05-09 22:48 | Emergency (ER) | payer MEDICAID ==
[~2023-05-09] VITALS: Ht 160 cm; Wt 95.3 kg
[2023-05-09 22:50] VITALS: BP 140/90; PULSE 93; RESP 18; TEMP 98; O2SAT 97
[2023-05-10 00:33] LABS: APPEARANCE,URINE SL CLOUDY (CLEAR); BILIRUBIN,URINE NEGATIVE (NEGATIVE); BLOOD, URINE TRACE-I (NEGATIVE); COLOR,URINE YELLOW (YELLOW); LEUKOCYTE ESTERASE ,URINE 2+ (NEGATIVE); NITRITE, URINE NEGATIVE (NEGATIVE); PH,URINE 5.5 (5.0-9.0); PROTEIN,URINE TRACE (NEGATIVE); UGLUCOSE NEGATIVE (NEGATIVE); UROBILINOGEN,URINE 0.2 EU/dL (0.2 - 1)
[2023-05-10 00:43] LABS: BACTERIA,URINE >30 (MANY) /HPF (None Seen); MUCUS,URINE 1+ /LPF (None Seen)
[2023-05-10] MEDS ORDERED: KETOROLAC 60 MG/2 ML VIAL IM ONE (00:55)
[2023-05-10] MEDS ORDERED: IBUP-2213 PO (01:00)
[2023-05-10] MEDS ORDERED: CIPR500T4 PO (01:00)
[2023-05-10] MEDS ORDERED: ACET-8905 PO (01:00)
== END 2023-05-10 01:57 | disposition home or self-care (01) ==
LOC: MED 22:48
DX: N39.0 Urinary tract infection, site not specified (principal); E11.9 Type 2 diabetes mellitus without complications; I10 Essential (primary) hypertension; Z86.39 Personal history of other endocrine, nutritional and metabolic disease; Z98.890 Other specified postprocedural states; Z79.899 Other long term (current) drug therapy; Z79.2 Long term (current) use of antibiotics; Z79.1 Long term (current) use of non-steroidal anti-inflammatories (NSAID)
CPT/HCPCS: 81001; 87086; 96372; 99283; J1885

== ENCOUNTER 2024-01-10 22:04 | Emergency (ER) | payer MEDICAID ==
[~2024-01-10] VITALS: Ht 160 cm; Wt 90.7 kg
[~2024-01-10 22:04] MED LIST changes: +ACET-8905 PO; +CIPR500T4 PO; -LISI-487 PO; +LISI-953 PO
[2024-01-10 22:43] VITALS: BP 140/95; PULSE 94; RESP 16; TEMP 97.7; O2SAT 99
[2024-01-11 00:49] LABS: BASOPHILS # (AUTO) 0.1 K/uL (0.00-0.22); BASOPHILS % (AUTO) 0.7 % (0.0-2.0); EOSINOPHILS # (AUTO) 0.1 K/uL (0-0.4); EOSINOPHILS % (AUTO) 0.9 % (0.0-4.0); HEMATOCRIT 39.8 % (36-48); HEMOGLOBIN 13.9 g/dL (12.0-16.0); LYMPHOCYTES # (AUTO) 2.1 K/uL (2.5-16.5); LYMPHOCYTES % (AUTO) 22.6 % (20.5-51.1); MEAN CORPUSCULAR HEMOGLOBIN 30 pg (27-31); MEAN CORPUSCULAR HGB CONC 35 g/dL (33-37); MEAN CORPUSCULAR VOLUME 86.8 fL (80-94); MONOCYTES # (AUTO) 0.6 K/uL (0.8-1.0); MONOCYTES % (AUTO) 6.3 % (1.7-9.3); NEUTROPHILS # (AUTO) 6.6 K/uL (1.8-7.7); NEUTROPHILS % (AUTO) 69.5 % (42.2-75.2); PLATELET COUNT (AUTO) 239 K/uL (140-450); RED BLOOD CELL COUNT(AUTO) 4.59 MIL/uL (4.20-5.40); RED CELL DISTRIBUTION WIDTH 13.8 % (11.6-13.7); WHITE BLOOD COUNT (AUTO) 9.5 K/uL (4.8-10.8)
[2024-01-11 00:52] LABS: APPEARANCE,URINE CLEAR (CLEAR); BILIRUBIN,URINE NEGATIVE (NEGATIVE); BLOOD, URINE NEGATIVE (NEGATIVE); COLOR,URINE YELLOW (YELLOW); PROTEIN,URINE TRACE (NEGATIVE); UGLUCOSE NEGATIVE (NEGATIVE)
[2024-01-11 00:53] LABS: LEUKOCYTE ESTERASE ,URINE NEGATIVE (NEGATIVE); NITRITE, URINE NEGATIVE (NEGATIVE); UROBILINOGEN,URINE 0.2 EU/dL (0.2 - 1)
[2024-01-11 01:03] LABS: ANION GAP 14.7 (8-16); CALCIUM 8.6 mg/dL (8.5-10.1); CARBON DIOXIDE 24.1 mmol/L (21-32); CREATININE 0.9 mg/dL (0.6-1.3); POTASSIUM 3.8 mmol/L (3.5-5.1)
[2024-01-11 01:20] LABS: ALBUMIN 3.8 g/dL (3.4-5.0); BILIRUBIN,DIRECT 0.1 mg/dL (0.0-0.3); TOTAL BILIRUBIN 0.8 mg/dL (0.0-1.0); TOTAL PROTEIN, SERUM 7.9 g/dL (6.4-8.2)
[2024-01-11] MEDS ORDERED: ONDA-188 SL (06:15)
[2024-01-11] MEDS ORDERED: BEN10 PO (06:15)
[2024-01-11] MEDS: DICYCLOMINE 20 MG/2 ML VIAL IM ONE (06:26)
[2024-01-11] MEDS: KETOROLAC 30 MG/ML VIAL IM ONE (06:26)
[2024-01-11] MEDS: ONDANSETRON 4 MG ODT PO ONE (06:27)
[2024-01-11 06:41] VITALS: BP 141/84; PULSE 84; RESP 18; TEMP 98; O2SAT 97
== END 2024-01-11 06:40 | disposition home or self-care (01) ==
LOC: MED 22:04
DX: A08.4 Viral intestinal infection, unspecified (principal); E11.9 Type 2 diabetes mellitus without complications; E78.5 Hyperlipidemia, unspecified; I10 Essential (primary) hypertension; Z79.84 Long term (current) use of oral hypoglycemic drugs; Z79.1 Long term (current) use of non-steroidal anti-inflammatories (NSAID); Z79.899 Other long term (current) drug therapy
CPT/HCPCS: 36415; 80048; 80076; 81003; 83690; 85025; 96372; 99284; J0500; J1885; Q0162